=== PATIENT | female | born 1980 | race Caucasian/White ===

== ENCOUNTER 2018-01-21 09:06 | Observation (INO) | payer OTHER ==
[2018-01-21] VITALS (8 sets, daily range): BP systolic 123–173; BP diastolic 70–78; PULSE 68–89; RESP 18–20; TEMP 97.3–97.9; O2SAT 95–100
[~2018-01-21] VITALS: Ht 157.5 cm; Wt 91.2 kg
[~2018-01-21 09:06] MED LIST: CLON.5 PO; GLUCTAB PO; IBUP800T23 PO; ROBA750T3 PO; SERT-129 PO; VALA1TAB PO
--- NOTE | 2018-01-21 09:36 | RADRPT ---
EXAM DATE/TIME: 01/21/2018 09:23 [place] COMPARISON: No previous studies available for comparison. INDICATIONS : Substernal chest pressure since last evening. MEDICAL HISTORY : Hypertension. Asthma. Diabetic. SURGICAL HISTORY : Hysterectomy. ENCOUNTER: Initial ACUITY: 2 days PAIN SCORE: 4/10 LOCATION: Middle chest FINDINGS: A single view of the chest demonstrates the lungs to be symmetrically aerated without evidence of mas s, infiltrate or effusion. The cardiomediastinal contours are unremarkable. Osseous structures are intact. CONCLUSION: No acute cardiopulmonary disease. Patrick Luna MD on January 21, 2018 at 9:32 Board Certified Radiologist. This report was verified electronically.
[2018-01-21 09:42] LABS: AUTOMATED NEUTROPHIL # 4.7 TH/MM3 (1.8-7.7); BASOPHIL # 0.4 TH/MM3 (0-0.2); BASOPHIL % 4.9 % (0.0-2.0); EOSINOPHIL # 0.1 TH/MM3 (0-0.4); EOSINOPHIL % 0.7 % (0.0-4.0); HEMATOCRIT 43.3 % (35.0-46.0); HEMOGLOBIN 14.3 GM/DL (11.6-15.3); LYMPH % 30.8 % (9.0-44.0); LYMPHOCYTE # 2.5 TH/MM3 (1.0-4.8); MEAN CORPUSCULAR HEMOGLOBIN 27.7 PG (27.0-34.0); MEAN PLATELET VOLUME 8.9 FL (7.0-11.0); MONO % 4.5 % (0.0-8.0); MONOCYTE # 0.4 TH/MM3 (0-0.9); NEUT % 59.1 % (16.0-70.0); PLATELET COUNT 376 TH/MM3 (150-450); RED BLOOD COUNT 5.16 MIL/MM3 (4.00-5.30); RED CELL DISTRIBUTION WIDTH 12.4 % (11.6-17.2); WHITE BLOOD COUNT 8.1 TH/MM3 (4.0-11.0)
[2018-01-21 09:56] LABS: CHLORIDE 101 MEQ/L (98-107); SODIUM (NA) 136 MEQ/L (136-145)
[2018-01-21 09:57] LABS: CALCIUM 8.7 MG/DL (8.5-10.1)
[2018-01-21 09:58] LABS: BICARBONATE 24.5 MEQ/L (21.0-32.0); GLUCOSE,RANDOM 265 MG/DL (74-106)
[2018-01-21 10:01] LABS: CREATININE 0.81 MG/DL (0.50-1.00); GLOMERULAR FILTRATION RATE 80 ML/MIN (>89)
[2018-01-21 10:05] LABS: BLOOD UREA NITROGEN 18 MG/DL (7-18)
[2018-01-21 10:06] LABS: TROPONIN I LESS THAN 0.02 NG/ML (0.02-0.05)
--- NOTE | 2018-01-21 10:07 | PD ---
HPI Chief Complaint: Chest Pain Time Seen by Provider: 10:04 Travel History International Travel<30 days: No Contact w/Intl Traveler<30days: No Traveled to known affect area: No History of Present Illness HPI This 37-year-old female says that since last night she has been having a tightness in her chest. Seems a little bit worse when she bends over or moves in certain ways but is been fairly persistent. She was not able to sleep last night while due to the pain. She says she described it as a heaviness. She took an antacid pill without much response. She has no history of hypertension she does have a history of diabetes. She does not smoke she has no family history that she is aware of. She does not recall having this pain before. She has not been taking anything for her diabetes. PFSH Past Medical History Asthma: Yes ( A CHILD) Blood Disorders: No Anxiety: Yes Depression: Yes Heart Rhythm Problems: No Cancer: No Cardiovascular Problems: No High Cholesterol: No Chemotherapy: No Chest Pain: No Congestive Heart Failure: No COPD: No Diabetes: Yes Patient Takes Glucophage: No Endocrine: Yes Genitourinary: No Hepatitis: No Hiatal Hernia: No Hypertension: Yes Immune Disorder: No Medical other: Yes (ANEMIA) Musculoskeletal: No Neurologic: No Psychiatric: No Reproductive: No Respiratory: No Immunizations Current: Yes Sleep Apnea: No Thyroid Disease: No Influenza Vaccination: No ?: Not Past Surgical History Hysterectomy: Yes Pacemaker: No Other Surgery: Yes (CYST REMOVAL) Social History Alcohol Use: Yes (RARE) Tobacco Use: No Substance Use: No Allergies-Medications (Allergen,Severity, Reaction): Coded Allergies: No Known Allergies (Verified Adverse Reaction, Unknown, 01/21/18) Reported Meds & Prescriptions Reported Meds & Active Scripts Active No Active Prescriptions or Reported Medications Review of Systems General / Constitutional: No: Fever, Chills Eyes: No: Diploplia, Blurred Vision HENT: No: Headaches, Vertigo Cardiovascular: Positive: Chest Pain or Discomfort Respiratory: No: Cough, Shortness of Breath Gastrointestinal: No: Nausea, Vomiting Genitourinary: No: Urgency, Frequency Musculoskeletal: No: Myalgias, Arthralgias Skin: No Rash, No Itching Neurologic: No: Weakness Endocrine: No: Heat Intolerance Hematologic/Lymphatic: No: Easy Bruising Physical Exam Narrative GENERAL: Well-developed female SKIN: Focused skin assessment warm/dry. HEAD: Atraumatic. Normocephalic. EYES: Pupils equal and round. No scleral icterus. No injection or drainage. ENT: No nasal bleeding or discharge. Mucous membranes pink and moist. NECK: Trachea midline. No JVD. CARDIOVASCULAR: Regular rate and rhythm. No murmur appreciated. RESPIRATORY: No accessory muscle use. Clear to auscultation. Breath sounds equal bilaterally. GASTROINTESTINAL: Abdomen soft, non-tender, nondistended. Hepatic and splenic margins not palpable. MUSCULOSKELETAL: No obvious deformities. No clubbing. No cyanosis. No edema. NEUROLOGICAL: Awake and alert. No obvious cranial nerve deficits. Motor grossly within normal limits. Normal speech. PSYCHIATRIC: Appropriate mood and affect; insight and judgment normal. Data Data Last Documented VS Vital Signs Date Time Temp Pulse Resp B/P (MAP) Pulse Ox O2 Delivery O2 Flow Rate FiO2 01/21/18 10:42 76 18 144/72 (96) 98 Room Air 01/21/18 09:15 97.9 Orders Orders Electrocardiogram (01/21/18 09:08) Complete Blood Count With Diff (01/21/18 09:08) Basic Metabolic Panel (Bmp) (01/21/18 09:08) Ckmb (Isoenzyme) Profile (01/21/18 09:08) Troponin I (01/21/18 09:08) Chest, Single Ap (01/21/18 09:08) Iv Access Insert/Monitor (01/21/18 09:08) Ecg Monitoring (01/21/18 09:08) Oxygen Administration (01/21/18 09:08) Oximetry (01/21/18 09:08) Ed Urine Pregnancytest Poc (01/21/18 09:08) Aspirin (Aspirin) (01/21/18 10:15) Insulin Human Regular Inj (Novolin R Inj (01/21/18 11:15) Labs Laboratory Tests Test 01/21/18 09:15 White Blood Count 8.1 TH/MM3 Red Blood Count 5.16 MIL/MM3 Hemoglobin 14.3 GM/DL Hematocrit 43.3 % Mean Corpuscular Volume 84.0 FL Mean Corpuscular Hemoglobin 27.7 PG Mean Corpuscular Hemoglobin Concent 33.0 % Red Cell Distribution Width 12.4 % Platelet Count 376 TH/MM3 Mean Platelet Volume 8.9 FL Neutrophils (%) (Auto) 59.1 % Lymphocytes (%) (Auto) 30.8 % Monocytes (%) (Auto) 4.5 % Eosinophils (%) (Auto) 0.7 % Basophils (%) (Auto) 4.9 % Neutrophils # (Auto) 4.7 TH/MM3 Lymphocytes # (Auto) 2.5 TH/MM3 Monocytes # (Auto) 0.4 TH/MM3 Eosinophils # (Auto) 0.1 TH/MM3 Basophils # (Auto) 0.4 TH/MM3 CBC Comment DIFF FINAL Differential Comment Blood Urea Nitrogen 18 MG/DL Creatinine 0.81 MG/DL Random Glucose 265 MG/DL Calcium Level 8.7 MG/DL Sodium Level 136 MEQ/L Potassium Level 4.7 MEQ/L Chloride Level 101 MEQ/L Carbon Dioxide Level 24.5 MEQ/L Anion Gap 11 MEQ/L Estimat Glomerular Filtration Rate 80 ML/MIN Total Creatine Kinase 96 U/L Troponin I LESS THAN 0.02 NG/ML MDM Medical Decision Making Medical Screen Exam Complete: Yes Emergency Medical Condition: Yes Medical Record Reviewed: Yes Differential Diagnosis Differential includes GERD, chest wall pain, coronary artery disease Narrative Course EKG shows normal sinus rhythm. Troponin is normal. Patient will be admitted to chest pain center for further evaluation. Her blood sugar 250 Diagnosis Primary Impression: Chest pain Admitting Information Admitting Physician Requests: Observation Scripts No Active Prescriptions or Reported Meds Luis Canada MD Jan 21, 2018 10:07
[2018-01-21] MEDS ORDERED: ASPIRIN 325 MG TAB PO ONE (10:15)
[2018-01-21] MEDS ORDERED: INSULIN HUMAN REGULAR 1,000 UNITS/10 ML VIAL SQ ONE (11:15)
[2018-01-21] MEDS ORDERED: SODIUM CHLORIDE 0.9% FLUSH 10 ML FLUSH IV FLUSH PRN (11:30)
[2018-01-21] MEDS ORDERED: GLUCAGON 1 MG/ML VIAL OTHER PRN (11:45)
[2018-01-21] MEDS ORDERED: DEXTROSE 50% IN WATER 50 ML VIAL(D50) IV PUSH PRN (11:45)
[2018-01-21] MEDS ORDERED: INSULIN ASPART SUPPLEMENTAL SCALE SQ SCH (12:00)
[2018-01-21] MEDS ORDERED: ONDANSETRON HCL 4 MG/2 ML VIAL IV PUSH PRN (12:00)
[2018-01-21] MEDS ORDERED: ACETAMINOPHEN 500 MG CPLT PO PRN (12:00)
--- NOTE | 2018-01-21 12:01 | HHI.HP ---
[facility] Primary Care Physician James Cheng D.O. Admission Diagnosis CHEST PAIN Diagnoses: (1) Chest pain (2) DM type 2 (diabetes mellitus, type 2) Chief Complaint: Chest pain Travel History International Travel<30 Days: No Contact w/Intl Traveler <30 Da: No Traveled to Known Affected Are: No History of Present Illness This is a pleasant 37-year-old female patient with a known medical history of diabetes and hypertension who presented to the ED with complaints of chest pain. Patient states last evening while at rest she developed a substernal chest pressure, characterized as heavy in nature, rated a 4 out of 10 at its worst on pain scale, worsens with movement or bending over, denies any radiation of pain up her neck or arm, denies any associated symptoms including nausea and vomiting, shortness of breath or diaphoresis. Patient states the pain is still present but relieved some, rated a 2 out of 10 on pain scale. Patient does state that she had a similar type of pain a couple weeks ago and resolved on its own. Denies any recent illness including fever, chills, cough, shortness of breath, abdominal pain, nausea, vomiting, diarrhea or dysuria. Patient denies any history of tobacco abuse. No familial history of cardiovascular disease. She does have a history of diabetes and possible hypertension, does not take any medicines for these due to complaints of side effects from metformin. PCP is Dr. Cheng. Does have appointment with him next month. Denies ever undergoing a cardiac stress test in the past. Review of Systems Constitutional: DENIES: Fatigue, Fever, Chills Eyes: DENIES: Blurred vision, Diplopia Respiratory: DENIES: Cough, Sputum production, Shortness of breath Cardiovascular: COMPLAINS OF: Chest pain, DENIES: Palpitations Gastrointestinal: DENIES: Abdominal pain, Black stools, Bloody stools, Constipation, Diarrhea, Nausea, Vomiting Musculoskeletal: DENIES: Joint pain Psychiatric: DENIES: Anxiety Except as stated in HPI: all other systems reviewed are Neg Past Family Social History Past Medical History Diabetes Asthma as a child Anxiety and depression Hypertension Past Surgical History Partial hysterectomy Cyst removal from back Reported Medications Active No Active Prescriptions or Reported Medications Allergies: Coded Allergies: No Known Allergies (Verified Allergy, Unknown, 01/21/18) Active Ordered Medications Current Medications Medications (Trade) Dose Ordered Sig/Marleny Route Start Time Stop Time Status Last Admin (NS Flush) 2 ml UNSCH PRN IV FLUSH 01/21/18 11:30 (NS Flush) 2 ml BID IV FLUSH 01/21/18 21:00 (Tylenol) 500 mg Q4H PRN PO 01/21/18 12:00 (Zofran Inj) 4 mg Q6H PRN IV PUSH 01/21/18 12:00 (D50w (Vial) Inj) 50 ml UNSCH PRN IV PUSH 01/21/18 11:45 (Glucagon Inj) 1 mg UNSCH PRN OTHER 01/21/18 11:45 (NovoLOG SUPPLEMENTAL SCALE) 1 ACHS SLIDING SCALE SQ 01/21/18 12:00 Family History Father has leukemia. Denies any history of cardiovascular disease or stroke. Social History Denies any previous or current tobacco use. Denies any alcohol or illicit drug use. Physical Exam Vital Signs Vital Signs Date Time Temp Pulse Resp B/P (MAP) Pulse Ox O2 Delivery O2 Flow Rate FiO2 01/21/18 10:42 76 18 144/72 (96) 98 Room Air 01/21/18 10:08 89 18 132/77 (95) 99 Room Air 01/21/18 09:28 70 01/21/18 09:25 100 Room Air 01/21/18 09:25 Room Air 01/21/18 09:15 97.9 71 18 173/70 (104) 100 Physical Exam GENERAL: Well-developed, well-nourished patient in [facility]. SKIN: Warm and dry. No rash. HEAD: Normocephalic. Atraumatic. EYES: Pupils equal and round. No scleral icterus. No injection or drainage. ENT: No nasal bleeding or discharge. Mucous membranes pink and moist. NECK: Supple. Trachea midline. CARDIOVASCULAR: Regular rate and rhythm. S1, S2 noted. No murmur appreciated. No chest pain to palpation. RESPIRATORY: No accessory muscle use. Clear to auscultation. Breath sounds equal bilaterally. GASTROINTESTINAL: Abdomen soft, non-tender, nondistended. Normoactive bowel sounds x4. MUSCULOSKELETAL: No obvious deformities. Extremities without clubbing, cyanosis , or edema. NEUROLOGICAL: Awake and alert. No obvious cranial nerve deficits. Motor grossly within normal limits. 5/5 muscle strength in bilateral upper and lower extremities. Normal speech. PSYCHIATRIC: Appropriate mood and affect; insight and judgment normal. Laboratory Laboratory Tests Test 01/21/18 09:15 White Blood Count 8.1 Red Blood Count 5.16 Hemoglobin 14.3 Hematocrit 43.3 Mean Corpuscular Volume 84.0 Mean Corpuscular Hemoglobin 27.7 Mean Corpuscular Hemoglobin Concent 33.0 Red Cell Distribution Width 12.4 Platelet Count 376 Mean Platelet Volume 8.9 Neutrophils (%) (Auto) 59.1 Lymphocytes (%) (Auto) 30.8 Monocytes (%) (Auto) 4.5 Eosinophils (%) (Auto) 0.7 Basophils (%) (Auto) 4.9 Neutrophils # (Auto) 4.7 Lymphocytes # (Auto) 2.5 Monocytes # (Auto) 0.4 Eosinophils # (Auto) 0.1 Basophils # (Auto) 0.4 CBC Comment DIFF FINAL Differential Comment Blood Urea Nitrogen 18 Creatinine 0.81 Random Glucose 265 Calcium Level 8.7 Sodium Level 136 Potassium Level 4.7 Chloride Level 101 Carbon Dioxide Level 24.5 Anion Gap 11 Estimat Glomerular Filtration Rate 80 Total Creatine Kinase 96 Troponin I LESS THAN 0.02 Result Diagram: 01/21/1815 01/21/18914 Imaging Last Impressions Chest X-Ray 01/21/1808 Signed Impressions: Service Date/Time: Sunday, January 21, 2018 09:23 - CONCLUSION: No acute cardiopulmonary disease. Patrick Luna MD Septic Shock Reassessment Septic shock perfusion: reassessment completed Caprini VTE Risk Assessment Caprini VTE Risk Assessment: No/Low Risk (score <= 1) Caprini Risk Assessment Model Point Value = 1 Point Value = 2 Point Value = 3 Point Value = 5 Age 41-60 Minor surgery BMI > 25 kg/m2 Swollen legs Varicose veins or History of unexplained or recurrent spontaneous Oral contraceptives or hormone replacement Sepsis (< 1 month) Serious lung disease, including pneumonia (< 1 month) Abnormal pulmonary function Acute myocardial infarction Congestive heart failure (< 1 month) History of inflammatory bowel disease Medical patient at bed rest Age 61-74 Arthroscopic surgery Major open surgery (> 45 min) Laparoscopic surgery (> 45 min) Malignancy Confined to bed (> 72 hours) Immobilizing plaster cast Central venous access Age >= 75 History of VTE Family history of VTE Factor V Leiden Prothrombin [id number] Lupus anticoagulant Anticardiolipin antibodies Elevated serum homocysteine Heparin-induced thrombocytopenia Other congenital or acquired thrombophilia Stroke (< 1 month) Elective arthroplasty Hip, pelvis, or leg fracture Acute spinal cord injury (< 1 month) Prophylaxis Regimen Total Risk Factor Score Risk Level Prophylaxis Regimen 0-1 Low Early ambulation 2 Moderate Order ONE of the following: *Sequential Compression Device (SCD) *Heparin 5000 units SQ BID 3-4 Higher Order ONE of the following medications: *Heparin 5000 units SQ TID *Enoxaparin/Lovenox 40 mg SQ daily (WT < 150 kg, CrCl > 30 mL/min) *Enoxaparin/Lovenox 30 mg SQ daily (WT < 150 kg, CrCl > 10-29 mL/min) *Enoxaparin/Lovenox 30 mg SQ BID (WT < 150 kg, CrCl > 30 mL/min) AND/OR *Sequential Compression Device (SCD) 5 or more Highest Order ONE of the following medications: *Heparin 5000 units SQ TID (Preferred with Epidurals) *Enoxaparin/Lovenox 40 mg SQ daily (WT < 150 kg, CrCl > 30 mL/min) *Enoxaparin/Lovenox 30 mg SQ daily (WT < 150 kg, CrCl > 10-29 mL/min) *Enoxaparin/Lovenox 30 mg SQ BID (WT < 150 kg, CrCl > 30 mL/min) AND *Sequential Compression Device (SCD) Assessment and Plan Problem List: (1) Chest pain ICD Code: R07.9 - Chest pain, unspecified Status: Acute Plan: Patient has been admitted to the chest pain center for observation. Serial EKGs and serial troponins have been ordered for ruling out ACS purposes. Initial troponin flat. Continue to monitor trends. EKG reviewed showing normal sinus rhythm, no arrhythmias, no ST changes to indicate any ischemia. Chest x-ray reviewed showing no acute cardiopulmonary disease. Patient will be monitored on cardiac telemetry, monitor for any arrhythmias. Was given aspirin in the ED. Will check a lipid panel as well as hemoglobin A1c. Continue to follow. Patient will likely undergo a treadmill cardiac stress test if ACS ruled out to further rule out ischemia. Will give one-time dose of Toradol. Assess response. Patient is stable at this time and agreeable to the plan. (2) DM type 2 (diabetes mellitus, type 2) ICD Code: E11.9 - DM type 2 (diabetes mellitus, type 2) Status: Acute Plan: Patient denies any home medications for control of diabetes. Random glucose in the 200s. Hemoglobin A1c pending. Follow. Placed on sliding scale insulin, Accu-Chek before meals at bedtime, cover as needed. Patient will be n.p.o. for possible stress test, monitor for hypoglycemia. (3) Hypertension ICD Code: I10 - Essential (primary) hypertension Plan: Patient hypertensive on presentation, systolic in the 170s. Now more controlled although still elevated. Monitor BP trends. We will possibly placed on JESSICA inhibitor upon discharge. Assessment and Plan Patient underwent cardiac stress test, images reviewed by on-call frame assembler Dr. Hogan, no ischemia is present. Patient feels dizzy after stress test , orthostatic blood pressures obtained and within normal limits. Patient given clearance to eat, will be discharged after eating and blood pressure stable. Chest pain likely musculoskeletal in nature, will give NSAIDs. Patient is encouraged to follow-up with PCP upon discharge. Lipid panel and hemoglobin A1c still pending, his labs will not be back till tomorrow morning. Patient encouraged to follow-up with PCP and obtain records for possible need for statin. Started on glipizide for diabetes management, patient states that she feels sick to her stomach and has gastrointestinal complaints with the use of metformin. Patient is encouraged to comply with medications and to follow-up with PCP. If chest pain persists or worsens patient encouraged to return to ED. Patient is stable at this time and agreeable to plan. Teresa Fong Jan 21, 2018 12:01
[2018-01-21 12:45] LABS: TROPONIN I LESS THAN 0.02 NG/ML (0.02-0.05)
[2018-01-21] MEDS ORDERED: KETOROLAC TROMETHAMINE 30 MG/ML (IVP) VIAL IV PUSH ONE (13:00)
[2018-01-21] MEDS ORDERED: GLIP5TAB8 PO (15:49)
[2018-01-21] MEDS ORDERED: AMLO5 PO (15:49)
--- NOTE | 2018-01-21 15:49 | HHI.DCPOC ---
Discharge Care Plan Diagnosis: (1) Chest pain (2) Hypertension (3) DM type 2 (diabetes mellitus, type 2) Goals to Promote Your Health * To prevent worsening of your condition and complications * To maintain your health at the optimal level Directions to Meet Your Goals Take your medications as prescribed Follow your dietary instruction Follow activity as directed Keep your appointments as scheduled Take your immunizations and boosters as scheduled If your symptoms worsen call your PCP, if no PCP go to Urgent Care Center or Emergency Room Smoking is Dangerous to Your Health. Avoid second hand smoke Call the 24-hour hour crisis hotline for domestic abuse at Teresa FongP Jan 21, 2018 15:49
[2018-01-21 16:32] LABS: HDL CHOLESTEROL 47.2 MG/DL (40.0-60.0)
[2018-01-21 17:01] LABS: TROPONIN I LESS THAN 0.02 NG/ML (0.02-0.05)
--- NOTE | 2018-01-21 17:34 | TR ---
Date Performed: 01/21/2018 Time Performed: 14:33:49 DOCTOR: Isis Hogan DRUG LIST: CLINICAL HISTORY: REASON FOR TEST: REASON FOR ENDING: OBSERVATION: CONCLUSION: Jaun protocol performed, test stopped secondary to reaching target heart rate. No r eproducible chest pain. Good BP response. Good exercise tolerance. No ST changes. Recovery quick and unremarkable.Maximum MI=448 Maximum MU=268/82 Total Exercise Time=5:01 COMMENTS:
--- NOTE | 2018-01-21 17:34 | EKG ---
Date Performed: 01/21/2018 Time Performed: 11:56:45 PTAGE: 37 years EKG: Sinus rhythm LOW QRS VOLTAGE IN PRECORDIAL LEADS BORDERLINE ECG Since PREVIOUS TRACING , no significant change noted DOCTOR: Isis Hogan Interpretating Date/Time 01/21/2018 17:33:05
--- NOTE | 2018-01-21 17:34 | EKG ---
Date Performed: 01/21/2018 Time Performed: 09:15:24 PTAGE: 37 years EKG: Sinus rhythm LOW QRS VOLTAGE IN PRECORDIAL LEADS BORDERLINE ECG Since PREVIOUS TRACING , no significant change noted DOCTOR: Isis Hogan Interpretating Date/Time 01/21/2018 17:33:21
[2018-01-21] MEDS ORDERED: SODIUM CHLORIDE 0.9% FLUSH 10 ML FLUSH IV FLUSH SCH (21:00)
== END 2018-01-21 17:30 | disposition home or self-care (01) ==
LOC: PHED 09:06 → PHEDA 11:26 → PH3B 12:10
PROVIDERS: ADMIT Hospitalist; ATTEND Hospitalist
DX: R07.89 Other chest pain (principal); I10 Essential (primary) hypertension; E11.9 Type 2 diabetes mellitus without complications; D64.9 Anemia, unspecified; J45.909 Unspecified asthma, uncomplicated; Z79.4 Long term (current) use of insulin
CPT/HCPCS: 71045; 80048; 80061; 82550; 82948; 84484; 85025; 93005; 93017; 96372; 96374; 99285; G0378; J1815; J1885